=== PATIENT | male | born 1960 | race Caucasian/White ===

== ENCOUNTER 2017-05-12 11:01 | Emergency (ER) | payer SELFPAY ==
[~2017-05-12] VITALS: Ht 177.8 cm; Wt 77.1 kg
[2017-05-12 11:01] VITALS: BP_SYST 152
--- NOTE | 2017-05-12 11:01 | NUR ---
BROUGHT IN BY WILLIAM HYLTON, PLACED IN BED #4 AND TRIAGED. REPORT GIVEN TO CLIFF
--- NOTE | 2017-05-12 11:07 | NUR ---
ER at bedside examining patient.
[2017-05-12] MEDS ORDERED: NACL 0.9% 1,000 ML IV ONE (11:15)
--- NOTE | 2017-05-12 11:20 | NUR ---
PATIENT ALERT, AWAKE, ORIENTED. ANXIOUS THAT MAXIMILIANO HYLTON IS HERE. REQUESTED TO CALL BLANCA HYLTON, CHARGE NURSE AWARE. CC OF SOB AND CHEST PAIN. DX SOB, HX COPD, AND HEART ATTACK FROM THE PAST. VITAL SIGN STABLE, AFEBRILE. SATURATION ON ROOM AIR A93%. INFORMED ABOUT THE POC.
[2017-05-12 11:25] LABS: BASOPHILS # (AUTO) 0.1 K/uL (0.0-0.2); BASOPHILS % (AUTO) 0.8 % (0.0-2.0); EOSINOPHILS # (AUTO) 0.4 K/uL (0.0-0.4); EOSINOPHILS % (AUTO) 4.3 % (0.0-4.0); HEMATOCRIT 42.2 % (36-54); LYMPHOCYTES # (AUTO) 2.4 K/uL (1.0-5.5); LYMPHOCYTES % (AUTO) 27.9 % (20.5-51.5); MEAN CORPUSCULAR HEMOGLOBIN 30 pg (27-31); MEAN CORPUSCULAR HGB CONC 33 % (32-36); MEAN CORPUSCULAR VOLUME 90 fL (79.0-98.0); MONOCYTES # (AUTO) 0.7 K/uL (0.0-1.0); NEUTROPHILS # (AUTO) 4.9 K/uL (1.8-7.7); PLATELET COUNT (AUTO) 381 K/uL (130-430); RED BLOOD CELL COUNT(AUTO) 4.67 MIL/uL (4.2-6.2); RED CELL DISTRIBUTION WIDTH 12.8 % (9.0-15.0); WHITE BLOOD COUNT (AUTO) 8.5 K/uL (4.8-10.8)
--- NOTE | 2017-05-12 11:25 | NUR ---
# 20 gauge angiocath placed to RIGHT AC. Use of asceptic technique. Opsite placed over site. Blood return noted. Flushed with 10 cc of normal saline. No evidence of infiltration noted. Patient tolerated well.
[2017-05-12] MEDS ORDERED: ALBUTEROL SULFATE 0.083% 2.5 MG/3 ML VIAL.NEB IH ONE ×2 (11:30→12:45)
[2017-05-12] MEDS ORDERED: IPRATROPIUM BROM 0.5 MG/2.5 ML VIAL.NEB (ATROVENT) IH ONE (11:30)
[2017-05-12 11:33] LABS: CALCIUM 9.1 mg/dL (8.4-11.0); CREATININE 1.18 mg/dL (0.55-1.30); POTASSIUM 3.6 mmol/L (3.5-5.1)
--- NOTE | 2017-05-12 11:35 | NUR ---
BBREATHING TREATMENT ADMINISTERED BY RESP[facility]ATORY THERAPIES.
[2017-05-12 11:37] LABS: INR 0.9 (0.80-1.20); PROTHROMBIN TIME 10.3 SECS (9.5-12.5)
[2017-05-12 11:38] LABS: TOTAL BILIRUBIN 0.4 mg/dL (0.0-1.0); TOTAL PROTEIN, SERUM 7.6 g/dL (6.4-8.3)
[2017-05-12] MEDS ORDERED: methylPREDNISolone SOD SUCC/PF 62.5 MG/ML VIAL IVP ONE (11:45)
--- NOTE | 2017-05-12 13:20 | NUR ---
patient resting. no s/s of distress.
[2017-05-12 13:45] VITALS: BP_SYST 130
--- NOTE | 2017-05-12 13:45 | NUR ---
Patient does not wish to proceed with medical care recommended by . Patient given information related to possible complications, up to and including , which could occur as a result of leaving hospital at this time. Patient verbalizes understanding of risks involved leaving against medical advice. Patient has signed AMA form. Addendum: 05/12/17 at 1352 by [email or web address] IV access removed and dressing applied. no active bleeding noted.
== END 2017-05-12 13:55 | disposition left against medical advice (07) ==
LOC: SED 11:01
DX: J44.1 Chronic obstructive pulmonary disease with (acute) exacerbation (principal); I10 Essential (primary) hypertension; I25.2 Old myocardial infarction; Z87.891 Personal history of nicotine dependence
CPT/HCPCS: 36415; 71010; 80053; 80061; 83880; 84484; 85025; 85610; 85730; 93005; 94150; 94640; 96361; 96374; 99285; J2930; J7030

== ENCOUNTER 2019-02-19 19:49 | Emergency (ER) | payer SELFPAY ==
[~2019-02-19] VITALS: Ht 180.3 cm; Wt 90.7 kg
[~2019-02-19 19:49] MED LIST: ALBMDI INH; LEVO500T20 PO; MONT10TA25 PO
[2019-02-19] MEDS ORDERED: ASPIRIN 81 MG TAB.CHEW PO ONE (20:00)
[2019-02-19] MEDS ORDERED: IPRATROPIUM/ALBUTEROL SULFATE 3 ML AMPUL.NEB (DUONEB) INH ONE (20:00)
[2019-02-19 20:03] VITALS: BP_SYST 154
[2019-02-19 21:08] LABS: HEMATOCRIT 47.5 % (36-54); HEMOGLOBIN 16.1 g/dL (14.0-18.0); MEAN CORPUSCULAR HEMOGLOBIN 31 pg (27-31); MEAN CORPUSCULAR VOLUME 90 fL (79.0-98.0); RED BLOOD CELL COUNT(AUTO) 5.25 MIL/uL (4.2-6.2); WHITE BLOOD COUNT (AUTO) 9.2 K/uL (4.8-10.8)
[2019-02-19 21:09] LABS: BASOPHILS # (AUTO) 0.1 K/uL (0.0-0.2); BASOPHILS % (AUTO) 1.4 % (0.0-2.0); EOSINOPHILS # (AUTO) 0.3 K/uL (0.0-0.4); EOSINOPHILS % (AUTO) 3.4 % (0.0-4.0); LYMPHOCYTES # (AUTO) 2.5 K/uL (1.0-5.5); MEAN CORPUSCULAR HGB CONC 34 % (32-36); MONOCYTES # (AUTO) 0.9 K/uL (0.0-1.0); MONOCYTES % (AUTO) 9.8 % (1.7-9.3); NEUTROPHILS # (AUTO) 5.4 K/uL (1.8-7.7); NEUTROPHILS % (AUTO) 58.4 % (40.0-70.0); PLATELET COUNT (AUTO) 317 K/uL (130-430); RED CELL DISTRIBUTION WIDTH 14.1 % (9.0-15.0)
[2019-02-19 21:13] LABS: CALCIUM 9.3 mg/dL (8.4-11.0); CREATININE 1.14 mg/dL (0.55-1.30); POTASSIUM 3.1 mmol/L (3.5-5.1)
[2019-02-19 21:18] LABS: TOTAL BILIRUBIN 0.7 mg/dL (0.0-1.0)
[2019-02-19] MEDS ORDERED: POTASSIUM CHLORIDE 20 MEQ TAB.PRT.SR PO ONE (21:30)
[2019-02-19] MEDS ORDERED: LEVOFLOXACIN 500 MG TABLET PO ONE (21:45)
[2019-02-19] MEDS ORDERED: KETOROLAC TROMETHAMINE 30 MG VIAL IVP ONE (21:45)
[2019-02-19] MEDS ORDERED: ALBUTEROL SULFATE 0.083% 2.5 MG/3 ML VIAL.NEB INH ONE (21:45)
[2019-02-19] MEDS ORDERED: PREDNISONE 20 MG TABLET PO ONE (21:45)
[2019-02-19 22:15] VITALS: BP_SYST 148
== END 2019-02-19 22:15 | disposition home or self-care (01) ==
LOC: SED 19:49
DX: J44.1 Chronic obstructive pulmonary disease with (acute) exacerbation (principal); F17.210 Nicotine dependence, cigarettes, uncomplicated; Z71.6 Tobacco abuse counseling; E11.9 Type 2 diabetes mellitus without complications; I10 Essential (primary) hypertension; Z86.79 Personal history of other diseases of the circulatory system; Z79.899 Other long term (current) drug therapy
CPT/HCPCS: 36415; 71045; 80053; 83605; 83880; 84484; 85025; 87040; 93005; 94640; 96374; 99285; J1885; J7512; J7613; J7620

== ENCOUNTER 2019-12-28 08:30 | Emergency (ER) | payer SELFPAY ==
[~2019-12-28] VITALS: Ht 177.8 cm; Wt 86.2 kg
--- NOTE | 2019-12-28 08:33 | NUR ---
Patient to ER bed H1 to gown for evaluation. Side rails up.
[2019-12-28 08:34] VITALS: BP_SYST 158
--- NOTE | 2019-12-28 08:35 | NUR ---
Pt brought by motorcycle police officer, Jerardo, pt presents to ER for medical clearance, pt states he has Hx of Diabetes, COD,Cancer and heart conditions, pt c/o mild chest discomfort, respirations even and unlabored, VSS, afebrile, will cont to monitor.
--- NOTE | 2019-12-28 08:43 | NUR ---
ER Dr. Puentes at bedside examining patient.
[2019-12-28] MEDS ORDERED: IPRATROPIUM/ALBUTEROL SULFATE 3 ML AMPUL.NEB (DUONEB) INH ONE (08:45)
--- NOTE | 2019-12-28 09:02 | NUR ---
Pt refusing labs at this time, pt states he wants to leave.
--- NOTE | 2019-12-28 09:07 | NUR ---
Patient does not wish to proceed with medical care recommended by Dr Puentes. Patient given information related to possible complications, up to and including , which could occur as a result of leaving hospital at this time. Patient verbalizes understanding of risks involved leaving against medical advice. Patient has signed AMA form.
== END 2019-12-28 09:07 | disposition left against medical advice (07) ==
LOC: SED 08:30
DX: R07.89 Other chest pain (principal); J44.9 Chronic obstructive pulmonary disease, unspecified; I10 Essential (primary) hypertension; E11.9 Type 2 diabetes mellitus without complications; Z86.73 Personal history of transient ischemic attack (TIA), and cerebral infarction without residual deficits
CPT/HCPCS: 82962; 94640; 99283; 99284

== ENCOUNTER 2022-12-04 16:26 | Emergency (ER) | payer MEDICAID ==
[~2022-12-04] VITALS: Ht 180.3 cm; Wt 115.7 kg
[~2022-12-04 16:26] MED LIST changes: +BUDE90AE IH; +HYDR-3927 PO; +INDO-12 PO; +MONT-40 PO; -MONT10TA25 PO; +OMEP40CA20 PO; +PRED20TA PO
[2022-12-04 16:30] VITALS: BP_SYST 139
[2022-12-04] MEDS ORDERED: MORPHINE 4 MG INJ. 4 MG/ML VIAL IVP ONE (17:15)
[2022-12-04] MEDS ORDERED: IPRATROPIUM/ALBUTEROL SULFATE 3 ML AMPUL.NEB (DUONEB) INH ONE (17:15)
[2022-12-04] MEDS ORDERED: COLCHICINE 0.6 MG TABLET PO ONE ×2 (17:15→19:00)
[2022-12-04] MEDS ORDERED: NACL 0.9% 1,000 ML IV ONE (17:15)
[2022-12-04] MEDS ORDERED: ONDANSETRON HCL 4 MG/2 ML VIAL IVP ONE (17:15)
[2022-12-04] MEDS ORDERED: KETOROLAC TROMETHAMINE 30 MG VIAL IVP ONE (17:30)
[2022-12-04 17:42] LABS: BASOPHILS # (AUTO) 0.1 K/uL (0.0-0.2); EOSINOPHILS # (AUTO) 0.4 K/uL (0.0-0.4); EOSINOPHILS % (AUTO) 3.4 % (0.0-4.0); HEMATOCRIT 47.3 % (36-54); LYMPHOCYTES # (AUTO) 2.3 K/uL (1.0-5.5); LYMPHOCYTES % (AUTO) 18.8 % (20.5-51.5); MEAN CORPUSCULAR HEMOGLOBIN 31 pg (27-31); MEAN CORPUSCULAR HGB CONC 34 % (32-36); MEAN CORPUSCULAR VOLUME 90 fL (79.0-98.0); MONOCYTES # (AUTO) 1.3 K/uL (0.0-1.0); MONOCYTES % (AUTO) 10.6 % (1.7-9.3); NEUTROPHILS # (AUTO) 8.2 K/uL (1.8-7.7); NEUTROPHILS % (AUTO) 66.2 % (40.0-70.0); PLATELET COUNT (AUTO) 348 K/uL (130-430); RED BLOOD CELL COUNT(AUTO) 5.23 MIL/uL (4.2-6.2); RED CELL DISTRIBUTION WIDTH 13.6 % (9.0-15.0); WHITE BLOOD COUNT (AUTO) 12.3 K/uL (4.8-10.8)
[2022-12-04 17:54] LABS: CALCIUM 9.3 mg/dL (8.4-11.0); CREATININE 1.08 mg/dL (0.55-1.30)
[2022-12-04 17:59] LABS: ALBUMIN 3.8 g/dL (3.4-4.8); TOTAL BILIRUBIN 0.6 mg/dL (0.0-1.0); URIC ACID 9.1 mg/dL (2.4-7.0)
[2022-12-04] MEDS ORDERED: COLCHICINE 0.6 MG TABLET ONE ×2 (18:19→19:12)
[2022-12-04] MEDS ORDERED: IBUP-1970 PO (18:51)
[2022-12-04] MEDS ORDERED: PRED20TA PO (18:51)
[2022-12-04] MEDS ORDERED: ALBU2.5V7 INH (18:51)
[2022-12-04] MEDS ORDERED: HYDR-3921 PO (18:54)
[2022-12-04 19:12] VITALS: BP_SYST 148
== END 2022-12-04 19:12 | disposition home or self-care (01) ==
LOC: SED 16:26
DX: M10.9 Gout, unspecified (principal); J44.1 Chronic obstructive pulmonary disease with (acute) exacerbation; R06.02 Shortness of breath; I10 Essential (primary) hypertension; E11.9 Type 2 diabetes mellitus without complications; Z79.899 Other long term (current) drug therapy
CPT/HCPCS: 99284; 96374; 71045; 96361; 80053; 83880; 84550; 85025; 85379; 87040; 36415; 94640; 94760; 83605; J1885; J7030

== ENCOUNTER 2024-03-06 11:22 | Emergency (ER) | payer MEDICAID ==
[~2024-03-06] VITALS: Ht 180.3 cm; Wt 108.9 kg
[~2024-03-06 11:22] MED LIST changes: +ALBU2.5V7 INH; +HYDR-3921 PO; +IBUP-1970 PO
[2024-03-06 11:40] VITALS: BP_SYST 135; PULSE 93; RESP 18; TEMP 97.4; O2SAT 97
[2024-03-06] MEDS ORDERED: PRED20TA PO (12:53)
[2024-03-06] MEDS ORDERED: NAPR-1172 PO (12:53)
[2024-03-06] MEDS: methylPREDNISolone SOD SUCC/PF 62.5 MG/ML VIAL IM ONE (13:49)
[2024-03-06] MEDS: KETOROLAC TROMETHAMINE 30 MG VIAL IM ONE (13:49)
[2024-03-06 13:50] VITALS: BP_SYST 135; PULSE 93; RESP 18; TEMP 97.4; O2SAT 97
== END 2024-03-06 13:50 | disposition home or self-care (01) ==
LOC: SED 11:22
DX: M10.072 Idiopathic gout, left ankle and foot (principal); J44.9 Chronic obstructive pulmonary disease, unspecified; E11.9 Type 2 diabetes mellitus without complications; I10 Essential (primary) hypertension; Z79.899 Other long term (current) drug therapy
CPT/HCPCS: 99284; 73610; 96372; J1885; J2930

== ENCOUNTER 2024-05-13 05:26 | Emergency (ER) | payer MEDICAID ==
[~2024-05-13] VITALS: Ht 180.3 cm; Wt 99.8 kg
[~2024-05-13 05:26] MED LIST changes: +NAPR-1172 PO
[2024-05-13 05:40] VITALS: BP_SYST 147; PULSE 83; RESP 18; TEMP 98.1; O2SAT 97
[2024-05-13] MEDS ORDERED: INDO-12 PO (06:14)
[2024-05-13] MEDS ORDERED: ALBMDI INH (06:14)
[2024-05-13] MEDS ORDERED: CEPH-548 PO (06:14)
[2024-05-13] MEDS ORDERED: PRED20TA PO (06:16)
[2024-05-13] MEDS: cephALEXin 500 MG CAPSULE PO ONE (06:19)
[2024-05-13] MEDS: IBUPROFEN 800 MG TABLET PO ONE (06:21)
[2024-05-13] MEDS ORDERED: methylPREDNISolone SOD SUCC/PF 62.5 MG/ML VIAL ONE (06:26)
[2024-05-13] MEDS: METHYLPREDNISOLONE SOD SUCC 40 MG/ML VIAL INJ ONE (06:28)
[2024-05-13] MEDS: methylPREDNISolone SOD SUCC/PF 62.5 MG/ML VIAL IM ONE (06:32)
[2024-05-13 06:37] VITALS: BP_SYST 147; PULSE 83; RESP 18; TEMP 98.1; O2SAT 97
== END 2024-05-13 06:30 | disposition home or self-care (01) ==
LOC: SED 05:26
DX: M10.042 Idiopathic gout, left hand (principal); J44.9 Chronic obstructive pulmonary disease, unspecified; E11.9 Type 2 diabetes mellitus without complications; I10 Essential (primary) hypertension; F17.210 Nicotine dependence, cigarettes, uncomplicated
CPT/HCPCS: 96372; 99283; J2930

== ENCOUNTER 2024-06-25 13:34 | Emergency (ER) | payer MEDICAID ==
[~2024-06-25] VITALS: Ht 180.3 cm; Wt 108.9 kg
[~2024-06-25 13:34] MED LIST changes: +CEPH-548 PO
[2024-06-25 13:40] VITALS: BP_SYST 154; PULSE 87; RESP 19; TEMP 97.2; O2SAT 98
[2024-06-25] MEDS ORDERED: INDO-12 PO (13:45)
[2024-06-25] MEDS ORDERED: METH-776 PO (13:45)
[2024-06-25] MEDS: DEXAMETHASONE SOD PHOSPHATE 10 MG/ML VIAL IM ONE (14:22)
[2024-06-25 14:23] VITALS: BP_SYST 154; PULSE 87; RESP 19; TEMP 97.2; O2SAT 98
== END 2024-06-25 14:25 | disposition home or self-care (01) ==
LOC: SED 13:34
DX: M10.9 Gout, unspecified (principal); J44.9 Chronic obstructive pulmonary disease, unspecified; E11.9 Type 2 diabetes mellitus without complications; I10 Essential (primary) hypertension
CPT/HCPCS: 99283; 96372; J1100

== ENCOUNTER 2024-08-19 15:09 | Emergency (ER) | payer MEDICAID ==
[~2024-08-19] VITALS: Ht 180.3 cm; Wt 108.9 kg
[~2024-08-19 15:09] MED LIST changes: +METH-776 PO
[2024-08-19 15:13] VITALS: BP_SYST 157; PULSE 103; RESP 18; TEMP 98.3; O2SAT 98
[2024-08-19 15:47] LABS: BASOPHILS # (AUTO) 0.1 K/uL (0.0-0.2); EOSINOPHILS # (AUTO) 0.5 K/uL (0.0-0.4)
[2024-08-19 15:52] LABS: BASOPHILS % (AUTO) 1.1 % (0.0-2.0); EOSINOPHILS % (AUTO) 4.8 % (0.0-4.0); HEMATOCRIT 45.8 % (36-54); HEMOGLOBIN 15.7 g/dL (14.0-18.0); LYMPHOCYTES # (AUTO) 2.3 K/uL (1.0-5.5); LYMPHOCYTES % (AUTO) 23.8 % (20.5-51.5); MEAN CORPUSCULAR HEMOGLOBIN 31 pg (27-31); MEAN CORPUSCULAR HGB CONC 34 % (32-36); MEAN CORPUSCULAR VOLUME 91 fL (79.0-98.0); MONOCYTES % (AUTO) 9.8 % (1.7-9.3); NEUTROPHILS # (AUTO) 5.9 K/uL (1.8-7.7); NEUTROPHILS % (AUTO) 60.5 % (40.0-70.0); PLATELET COUNT (AUTO) 314 K/uL (130-430); RED BLOOD CELL COUNT(AUTO) 5.01 MIL/uL (4.2-6.2); WHITE BLOOD COUNT (AUTO) 9.8 K/uL (4.8-10.8)
[2024-08-19 15:56] LABS: PROTHROMBIN TIME 10.2 SECS (9.5-12.5)
[2024-08-19 16:09] LABS: CALCIUM 9.2 mg/dL (8.4-11.0); CREATININE 1.47 mg/dL (0.55-1.30)
[2024-08-19] MEDS ORDERED: CLIN-142 PO (16:25)
[2024-08-19] MEDS: DIPHTH,PERTUSS(ACELL),TET VAC 0.5 ML VIAL (Tdap) I.M. ONE (16:35)
[2024-08-19] MEDS: LIDOCAINE 1% 10 MG/ML, 20 ML MDV INJ ONE (16:36)
[2024-08-19 16:37] VITALS: BP_SYST 167; PULSE 102; RESP 18; TEMP 98.3; O2SAT 98
== END 2024-08-19 16:41 | disposition home or self-care (01) ==
LOC: SED 15:09
DX: M70.22 Olecranon bursitis, left elbow (principal); J44.9 Chronic obstructive pulmonary disease, unspecified; E11.9 Type 2 diabetes mellitus without complications; I10 Essential (primary) hypertension; Z79.899 Other long term (current) drug therapy; Z79.2 Long term (current) use of antibiotics; Z23 Encounter for immunization; Z79.51 Long term (current) use of inhaled steroids; Z79.52 Long term (current) use of systemic steroids; Y93.89 Activity, other specified
CPT/HCPCS: 99284; 20605; 80048; 85025; 85610; 85730; 36415; 73080; 90715; 83605; 90471; 82397; J2003

== ENCOUNTER 2024-09-07 15:32 | Emergency (ER) | payer MEDICAID ==
[~2024-09-07] VITALS: Ht 172.7 cm; Wt 108.9 kg
[~2024-09-07 15:32] MED LIST changes: +CLIN-142 PO
[2024-09-07 15:41] VITALS: BP_SYST 117; PULSE 115; RESP 18; TEMP 98.3; O2SAT 96
[2024-09-07] MEDS ORDERED: COLC0.6T67 PO (16:02)
[2024-09-07] MEDS ORDERED: INDO-12 PO (16:02)
[2024-09-07] MEDS ORDERED: PRED20TA PO (16:02)
[2024-09-07] MEDS ORDERED: ALBMDI INH (16:07)
[2024-09-07] MEDS: predniSONE 20 MG TABLET PO ONE (16:08)
[2024-09-07] MEDS: KETOROLAC TROMETHAMINE 60 MG/2 ML VIAL IM ONE (16:08)
[2024-09-07 16:45] VITALS: BP_SYST 117; PULSE 115; RESP 18; TEMP 98.3; O2SAT 96
== END 2024-09-07 16:46 | disposition home or self-care (01) ==
LOC: SED 15:32
DX: M10.9 Gout, unspecified (principal); I25.2 Old myocardial infarction; J44.9 Chronic obstructive pulmonary disease, unspecified; E11.9 Type 2 diabetes mellitus without complications; I10 Essential (primary) hypertension; Z79.899 Other long term (current) drug therapy; Z79.2 Long term (current) use of antibiotics
CPT/HCPCS: 99283; 96372; J7512; J1885